=== PATIENT | female | born 1955 | race African-American/Black ===

== ENCOUNTER → 2017-01-07 | Outpatient (CLI) | payer BC ==
[~2017-01-07] MED LIST: ASPIRIN 81M81 MG/TA2 PO; CARDI-OMEGA1000 MG PO; FERRATE325 MG PO; GLUCOPHAGE1000 MG PO; LANTUS100 U/ML SC; LIPITOR 10MG10 MG PO; PRIL40 PO; PRINIVIL20 MG PO; PROTONIX20 MG PO; THERAPEUTIC VIT1 CAP PO; VITAMIN C500 MG PO; VITAMIN D1000 IU PO
== END ==
LOC: MC.RAD 12-21 13:20
DX: Z12.31 Encounter for screening mammogram for malignant neoplasm of breast (principal)

== ENCOUNTER → 2018-02-25 | Outpatient (CLI) | payer BC | LOC: MC.RAD 08:04 | DX: Z12.31 Encounter for screening mammogram for malignant neoplasm of breast (principal) ==

== ENCOUNTER → 2019-05-22 | Outpatient (CLI) | payer BC | LOC: MC.RAD 04-27 08:15 | DX: Z12.31 Encounter for screening mammogram for malignant neoplasm of breast (principal) ==

== ENCOUNTER 2020-01-18 15:00 | Outpatient (RCR) | payer BC | END 2020-01-20 10:43 | disposition home or self-care (01) | LOC: WSC 15:00 | DX: M54.31 Sciatica, right side (principal) ==

== ENCOUNTER → 2020-06-17 | Outpatient (CLI) | payer BC | LOC: MC.RAD | DX: Z12.31 Encounter for screening mammogram for malignant neoplasm of breast (principal) ==

== ENCOUNTER 2023-04-18 13:34 | Outpatient (CLI) | payer MEDICARE, OTHER ==
[~2023-04-18] VITALS: Ht 162.6 cm; Wt 59.4 kg
[2023-04-18 13:56] VITALS: BP 123/79; PULSE 88; TEMP 97.8
[2023-04-18] MEDS ORDERED: PRINIVIL10 MG PO (14:05)
[2023-04-18] MEDS ORDERED: PLAVIX 75MG TAB75 MG PO (14:06)
[2023-04-18] MEDS ORDERED: PROTONIX 40MG T40 MG PO (14:06)
[2023-04-18] MEDS ORDERED: XIGDUO10/1000 (14:07)
[2023-04-18] MEDS ORDERED: PRAVACHOL 40MG40 MG PO (14:07)
[2023-04-18] MEDS ORDERED: VTAMINC250TA (14:08)
[2023-04-18] MEDS ORDERED: NATURAL IRON65 MG (14:08)
[2023-04-18] MEDS ORDERED: MULTIPLE VITAMI1 CAP PO (14:08)
== END 2023-04-18 15:29 | disposition home or self-care (01) ==
LOC: EUO 13:34
DX: M81.0 Age-related osteoporosis without current pathological fracture (principal)
CPT/HCPCS: J3489

== ENCOUNTER 2023-11-08 15:21 | Outpatient (RCR) | payer MEDICARE, OTHER ==
[~2023-11-08 15:21] MED LIST changes: +MULTIPLE VITAMI1 CAP PO; +NATURAL IRON65 MG; +PLAVIX 75MG TAB75 MG PO; +PRAVACHOL 40MG40 MG PO; +PRINIVIL10 MG PO; +PROTONIX 40MG T40 MG PO; +VTAMINC250TA; +XIGDUO10/1000
== END 2023-11-13 | disposition home or self-care (01) ==
LOC: COL.CR
DX: I73.9 Peripheral vascular disease, unspecified (principal)

== ENCOUNTER → 2023-12-18 | Outpatient (CLI) | payer MEDICARE, OTHER | LOC: DIA.ED 05:42 | DX: E11.9 Type 2 diabetes mellitus without complications (principal); Z79.84 Long term (current) use of oral hypoglycemic drugs | CPT/HCPCS: G0108 ==

== ENCOUNTER → 2024-01-13 | Outpatient (RCR) | payer MEDICARE ==
[~2024-01-13] MED LIST changes: +B-121000 MCG PO; +ELIQUIS 5MG PO; +MAGNESIUM250 M1 PO; -NATURAL IRON65 MG; +NATURAL IRON65 MG PO; +VITAMIN D31000 I1 PO
== END | disposition home or self-care (01) ==
LOC: COL.CR
DX: Z02.89 Encounter for other administrative examinations (principal)

== ENCOUNTER → 2024-01-13 | Outpatient (CLI) | payer MEDICARE ==
[~2024-01-13] MED LIST changes: -B-121000 MCG PO; -ELIQUIS 5MG PO; -MAGNESIUM250 M1 PO; +NATURAL IRON65 MG; -NATURAL IRON65 MG PO; -VITAMIN D31000 I1 PO
== END ==
LOC: DIA.ED 09:10
DX: E11.9 Type 2 diabetes mellitus without complications (principal); Z79.84 Long term (current) use of oral hypoglycemic drugs

== ENCOUNTER 2024-01-22 15:12 | Outpatient (RCR) | payer MEDICARE ==
[~2024-01-22 15:12] MED LIST changes: -NATURAL IRON65 MG; +NATURAL IRON65 MG PO
== END 2024-01-24 14:22 | disposition home or self-care (01) ==
LOC: COL.CR 15:12
DX: Z02.89 Encounter for other administrative examinations (principal)

== ENCOUNTER 2024-03-12 14:20 | Emergency (ER) | payer MEDICARE ==
[~2024-03-12] VITALS: Ht 162.6 cm; Wt 61.4 kg
[2024-03-12 15:08] LABS: BASO # 0.1 K/mm3 (0.0-0.2); BASO % 0.5 % (0.0-2.0); EOS # 0.3 K/mm3 (0.0-0.7); EOS % 2.2 % (0.0-4.0); GRAN # 7.6 K/mm3 (1.4-6.5); LYMPH # 2.9 K/mm3 (1.2-3.4); LYMPH % 24.7 % (20.0-51.0); MEAN CELL VOLUME 93 fl (80.0-100.0); MEAN CORPUSCULAR HEMOGLOBIN 29 pg (27-31); MEAN CORPUSCULAR HGB CONC 32 g/dl (33.0-37.0); MEAN PLATELET VOLUME 9.4 fl (7.4-10.4); MONO # 0.8 K/mm3 (0.1-0.6); MONO % 7.1 % (1.7-9.3); PLATELET COUNT 479 K/mm3 (130-400); RED BLOOD COUNT 2.05 M/mm3 (4.10-5.30); REDCELL DISTRIBUTION WIDTH-CV 17.4 % (11.5-14.5)
[2024-03-12 15:19] LABS: COLLECTION METHOD CLEAN CATCH
[2024-03-12 15:22] LABS: URINE APPEARANCE CLEAR (CLEAR/HAZY); URINE BLOOD NEGATIVE (NEGATIVE); URINE COLOR YELLOW (YELLOW); URINE GLUCOSE 2+ (NEGATIVE); URINE KETONE NEGATIVE (NEGATIVE); URINE NITRATE NEGATIVE (NEGATIVE); URINE PROTEIN(semi-quant) NEGATIVE (NEGATIVE); URINE UROBILINOGEN 0.2 E.U/dL (0.2-1.0)
[2024-03-12 15:24] LABS: ALANINE AMINOTRANSFERASE 17 U/L (0-55); ALBUMIN 3.6 g/dL (3.4-4.8); ALKALINE PHOSPHATASE 63 U/L (40-150); ANION GAP 15 mmol/L (7-16); AST,SGOT 14 U/L (5-34); BILIRUBIN,TOTAL 0.2 mg/dL (0.2-1.2); BLOOD UREA NITROGEN 25 mg/dL (10-20); CALCIUM 9.5 mg/dL (8.4-10.2); CHLORIDE 98 mEq/L (98-107); CREATININE, serum 1.14 mg/dL (0.57-1.11); GLUCOSE 209 mg/dL (70-99); LIPASE 32 U/L (8-78); POTASSIUM 3.9 mEq/L (3.5-4.5); SODIUM 135 mEq/L (136-145)
[2024-03-12] MEDS ORDERED: ASPIRIN 81M81 MG/TA2 PO (15:30)
[2024-03-12] MEDS ORDERED: ELIQUIS 5MG PO (15:30)
[2024-03-12 15:31] LABS: TROPONIN-I < 0.010 ng/mL (0.00-0.033)
[2024-03-12] MEDS ORDERED: MAGNESIUM250 M1 PO (15:36)
[2024-03-12] MEDS ORDERED: VITAMIN D31000 I1 PO (15:36)
[2024-03-12] MEDS ORDERED: B-121000 MCG PO (15:37)
[2024-03-12] MEDS ORDERED: Pantoprazole 40 MG in NS 10 ML IV ONE (15:45)
[2024-03-12 17:36] VITALS: BP 130/80; PULSE 92; TEMP 98.4
[2024-03-12 17:51] VITALS: BP 105/52; PULSE 87; TEMP 98.5
[2024-03-12 18:21] VITALS: BP 135/68; PULSE 93; TEMP 98.6
[2024-03-12 19:15] VITALS: BP 131/65; PULSE 82
== END 2024-03-12 19:15 | disposition short-term general hospital (02) ==
LOC: COL.ER 14:20
PROVIDERS: Emergency Medicine
DX: D64.9 Anemia, unspecified (principal); K92.2 Gastrointestinal hemorrhage, unspecified
CPT/HCPCS: J2470; P9016